=== PATIENT | female | born 1940 | race Caucasian/White ===

== ENCOUNTER 2016-09-18 15:07 | Emergency (ER) | payer MEDICARE, OTHER ==
[~2016-09-18 15:07] MED LIST: AZELASTINE HCL6 ML OP; AZELASTINE137 MCG/0. INH; CELEBREX200 MG PO; CLARITIN 10MG T10 MG PO; COMBIVENT0.074 GM/I INH; DULERA INH; ENDUR-ACIN500 MG PO; ISOSORBIDE MONO60 MG PO; K-TAB ER10 MEQ PO; LEVAQUIN500 MG PO; LEVOTHYROXINE25 MCG PO; LIPITOR TAB 2020 MG PO; LORATADINE PO; PLAVIX 75 MG TA75 MG PO; PREDNISONE 20 M20 MG PO; RANEXA500 MG PO; REQUIP1 MG PO; SYMBICORT 160-1 INHA INH; TENORMIN 25 MG25 MG PO; TRIAMTERENE-HC1 EACH PO; VENTOLIN HFA INH; ZESTRIL5 MG PO; ZITHROMAX500 MG PO
[2016-09-18 16:42] LABS: HEMOGLOBIN 12.7 gm/dl (12.3-15.3); RED BLOOD COUNT 4.01 M/UL (4.00-5.10); WHITE BLOOD COUNT 6.1 K/UL (4.5-11.0)
[2016-09-18 17:08] LABS: BUN/CREATININE RATIO 19 (0-10)
== END 2016-09-18 21:02 ==
LOC: ER1 15:07
PROVIDERS: Emergency Medicine
DX: H53.2 Diplopia (principal); E78.5 Hyperlipidemia, unspecified; I10 Essential (primary) hypertension; E87.6 Hypokalemia; Z86.73 Personal history of transient ischemic attack (TIA), and cerebral infarction without residual deficits; Z95.1 Presence of aortocoronary bypass graft; Z98.61 Coronary angioplasty status
CPT/HCPCS: 36415; 70450; 80053; 82550; 82553; 83874; 84484; 85025; 85610; 85730; 93005; 99285